=== PATIENT | female | born 1950 | race Caucasian/White ===

== ENCOUNTER 2020-10-23 20:16 | Inpatient (IN) | payer OTHER ==
[~2020-10-23] VITALS: Ht 167.6 cm; Wt 109.2 kg
[~2020-10-23 20:16] MED LIST: BUPR150ER PO; CALCAVITD PO; CANCER MED; CYAN100 PO; DULO30 PO; DULO60 PO; HYDACE5 PO; IBUHYD PO; MULVITMINF PO; OMEP20ER PO; OXYACE5T PO; PHENTERMINE PO; ROSU10TA PO; ROSU5 PO; RXOXYACE PO; THYROID; WELLBUTRIN
[2020-10-23 20:40] LABS: BASOPHILS ABSOLUTE AUTO 0.05 K/mm3 (0.00-0.23); BASOPHILS PERCENT AUTO 0 % (0-2); EOSINOPHILS ABSOLUTE AUTO 0.03 K/mm3 (0.00-0.68); EOSINOPHILS PERCENT AUTO 0 % (0-6); Hematocrit 42.4 % (33.0-51.0); IMMATURE GRAN ABSOLUTE AUTO 0.12 K/mm3 (0.00-0.10); IMMATURE GRAN PERCENT AUTO 1 % (0-1); LYMPHOCYTES ABSOLUTE AUTO 1.09 K/mm3 (0.84-5.20); LYMPHOCYTES PERCENT AUTO 7 % (21-46); MONOCYTES ABSOLUTE AUTO 1.82 K/mm3 (0.16-1.47); MONOCYTES PERCENT AUTO 11 % (4-13); Mean Corpuscular HGB 30.8 pg (26.0-34.0); Mean Corpuscular Volume 93 fL (80-100); Mean Platelet Volume 9.7 fL (9.1-12.4); NEUTROPHILS ABSOLUTE AUTO 13.16 K/mm3 (1.96-9.15); NEUTROPHILS PERCENT AUTO 81 % (41-73); Platelet Count 270 K/mm3 (150-400); RDW Coefficient Variation 12.2 % (11.7-14.2); RDW Standard Deviation 42.6 fL (35.1-46.3); Red Blood Cell Count 4.54 M/mm3 (3.80-5.20); White Blood Cell Count 16.27 K/mm3 (4.00-11.30)
[2020-10-23 20:58] LABS: Source, Urine Catheter
[2020-10-23 20:58] LABS: Alanine Aminotransfer (ALT/SGP 14 U/L (12-78); Albumin, Blood 2.9 g/dL (3.4-5.0); Albumin/Globulin Ratio 0.7 (0.8-1.8); Alk Phos 175 U/L (50-136); Anion Gap 13 mmol/L (6-16); Aspartate Aminotrans (AST/SGOT 17 U/L (12-37); Blood Urea Nitrogen 10 mg/dL (8-24); Bun/Creatinine Ratio 10.5 (12.0-20.0); CO2, Blood 22 mmol/L (21-32); Calcium, Blood 8.9 mg/dL (8.5-10.1); Chloride, Blood 101 mmol/L (98-108); Creatinine, Blood 0.95 mg/dL (0.40-1.00); Glomerular Filtration Rate >60 (60-); Glucose, Blood 104 mg/dL (70-99); Sodium, Blood 136 mmol/L (136-145); Total Protein, Blood 6.9 g/dL (6.4-8.2)
[2020-10-23 21:07] LABS: Appearance, Urine Hazy (Clear); Blood, Urine 4+ (Neg); Color, Urine Yellow (P-Yellow); Glucose Qualitative, Urine Neg (Neg); Ketones, Urine 4+ (Neg); Leukocyte Esterase, Urine 1+ (Neg); Nitrite, Urine Neg (Neg); Protein, Urine 3+ (Neg); Specific Gravity, Urine 1.015 (1.003-1.022); Urobilinogen, Urine 3+ (Normal)
[2020-10-23 21:13] LABS: Bilirubin, Urine 1+ (Neg)
[2020-10-23 21:14] LABS: Bacteria Mod /hpf; Squamous Epithelial Cells Not Seen /hpf (Few)
[2020-10-23 21:15] LABS: WBC Cast 0-2 /lpf (0)
[2020-10-23 22:18] LABS: Influenza A, PCR Negative (NEGATIVE); Influenza B, PCR Negative (NEGATIVE); Resp Syncytial Virus, PCR Negative (NEGATIVE); SARS-Cov-2 (COVID-19) PCR, MMC Negative (NEGATIVE)
[2020-10-23 22:39] LABS: Troponin I <0.015 ng/mL (0.000-0.040)
[2020-10-24] MEDS ORDERED: FLUO10 PO (05:39)
[2020-10-24] MEDS ORDERED: RABE20 PO (05:39)
[2020-10-24] MEDS ORDERED: MELATONIN5 M1 PO (05:40)
[2020-10-24] MEDS ORDERED: ALPR.25 PO (05:40)
[2020-10-24] MEDS ORDERED: DOC250 PO (05:41)
[2020-10-24 05:55] LABS: BASOPHILS ABSOLUTE AUTO 0.03 K/mm3 (0.00-0.23); BASOPHILS PERCENT AUTO 0 % (0-2); EOSINOPHILS ABSOLUTE AUTO 0.07 K/mm3 (0.00-0.68); EOSINOPHILS PERCENT AUTO 1 % (0-6); Hematocrit 38.9 % (33.0-51.0); Hemoglobin 12.4 g/dL (11.5-16.0); IMMATURE GRAN ABSOLUTE AUTO 0.09 K/mm3 (0.00-0.10); IMMATURE GRAN PERCENT AUTO 1 % (0-1); LYMPHOCYTES ABSOLUTE AUTO 1.43 K/mm3 (0.84-5.20); LYMPHOCYTES PERCENT AUTO 10 % (21-46); MONOCYTES ABSOLUTE AUTO 1.37 K/mm3 (0.16-1.47); MONOCYTES PERCENT AUTO 10 % (4-13); Mean Corpuscular HGB 30.4 pg (26.0-34.0); Mean Corpuscular HGB Conc 31.9 g/dL (31.5-36.5); Mean Corpuscular Volume 95 fL (80-100); NEUTROPHILS ABSOLUTE AUTO 10.74 K/mm3 (1.96-9.15); NEUTROPHILS PERCENT AUTO 78 % (41-73); Platelet Count 268 K/mm3 (150-400); RDW Coefficient Variation 12.4 % (11.7-14.2); RDW Standard Deviation 43.7 fL (35.1-46.3); Red Blood Cell Count 4.08 M/mm3 (3.80-5.20); White Blood Cell Count 13.73 K/mm3 (4.00-11.30)
[2020-10-24 12:23] LABS: Anion Gap 8 mmol/L (6-16); Blood Urea Nitrogen 10 mg/dL (8-24); Bun/Creatinine Ratio 11.6 (12.0-20.0); CO2, Blood 27 mmol/L (21-32); Calcium, Blood 8.6 mg/dL (8.5-10.1); Chloride, Blood 107 mmol/L (98-108); Creatinine, Blood 0.86 mg/dL (0.40-1.00); Glomerular Filtration Rate >60 (60-); Glucose, Blood 88 mg/dL (70-99); Potassium, Blood 3.8 mmol/L (3.5-5.5); Sodium, Blood 142 mmol/L (136-145)
--- NOTE | 2020-10-24 14:29 | NUR ---
INTO SDS WITH RN, ADMISSION TO UNIT STARTED.
--- NOTE | 2020-10-24 15:24 | NUR ---
10/24/20 1524 Dwain Gardiner PT ON SCHEDULED UNASYN AND RECIEVED PRIOR TO OR ARRIVAL.
[2020-10-24] MEDS ORDERED: PARO20 PO (16:30)
[2020-10-24] MEDS ORDERED: GABA300 PO (16:30)
--- NOTE | 2020-10-24 17:41 | NUR ---
SHIFT SUMMARY PT CURRENTLY AT DAY SURGERY. A&Ox4; CALM AND COOPERAIVE WITH CARE. PT APPEARS TO BE SLEEPING FOR MAJOIRTY OF SHIFT. PT DENIES PAIN FOR MAJOIRTY OF SHIFT, REPORTS CHEST PAIN THAT IS WORSE WITH BREATHING AND EPIGASTRIC AND RIGHT SIDED RIB PAIN; NOTIFIED DR YI; NEW ORDERS ENTERED. PT REPORTS MILD NAUSEA, DENIES NEED FOR INTERVENTION. PT DENIES SOB AND DIZZINESS T/O SHIFT. PT RECEIVING IV POTASSIUM. VSS. NO OTHER ACUTE CHAGNES NOTED DURING SHIFT. WILL CONTINUE TO MONITOR UNTIL REPORT GIVEN TO ONCOMING RN.
--- NOTE | 2020-10-24 18:28 | NUR ---
POD 0 LAP/OPEN SILVANO PATIENT CAME BACK TO SURGICAL UNIT AT 1820 TODAY 10/24/2020. SHE IS SLEEPING BUT AROUSABLE. POST OP VSS AND IN PROGRESS. MEDICATING FOR PAIN PER ORDERS. NICKY AND JEFE DRAIN INTACT. IVF INFUSING PER ORDERS. FAMILY MEMBER AT BEDSIDE FOR SUPPORT. CALL LIGHT WITHIN REACH.
--- NOTE | 2020-10-24 18:37 | NUR ---
PT LEFT FOR SURGERY AT APPROX 1400; TRANSFERED TO ROOM 224 POST OP; VERBAL REPORT GIVEN TO BRETT XIONG ASSUMING CARE OF PT.
[2020-10-25 04:22] LABS: BASOPHILS ABSOLUTE AUTO 0.02 K/mm3 (0.00-0.23); BASOPHILS PERCENT AUTO 0 % (0-2); EOSINOPHILS PERCENT AUTO 0 % (0-6); Hematocrit 40.1 % (33.0-51.0); Hemoglobin 12.7 g/dL (11.5-16.0); IMMATURE GRAN PERCENT AUTO 1 % (0-1); LYMPHOCYTES ABSOLUTE AUTO 0.68 K/mm3 (0.84-5.20); LYMPHOCYTES PERCENT AUTO 5 % (21-46); MONOCYTES PERCENT AUTO 4 % (4-13); Mean Corpuscular HGB 30.4 pg (26.0-34.0); Mean Corpuscular HGB Conc 31.7 g/dL (31.5-36.5); Mean Corpuscular Volume 96 fL (80-100); Mean Platelet Volume 9.6 fL (9.1-12.4); NEUTROPHILS PERCENT AUTO 89 % (41-73); Platelet Count 293 K/mm3 (150-400); RDW Coefficient Variation 12.6 % (11.7-14.2); RDW Standard Deviation 45.3 fL (35.1-46.3); Red Blood Cell Count 4.18 M/mm3 (3.80-5.20)
[2020-10-25 04:42] LABS: Alanine Aminotransfer (ALT/SGP 43 U/L (12-78); Albumin, Blood 2.3 g/dL (3.4-5.0); Albumin/Globulin Ratio 0.5 (0.8-1.8); Alk Phos 178 U/L (50-136); Anion Gap 8 mmol/L (6-16); Aspartate Aminotrans (AST/SGOT 54 U/L (12-37); Bilirubin, Total 0.4 mg/dL (0.1-1.0); Blood Urea Nitrogen 15 mg/dL (8-24); CO2, Blood 25 mmol/L (21-32); Calcium, Blood 8.7 mg/dL (8.5-10.1); Chloride, Blood 107 mmol/L (98-108); Creatinine, Blood 0.75 mg/dL (0.40-1.00); Globulin, Blood 4.4 g/dL (2.2-4.0); Glomerular Filtration Rate >60 (60-); Glucose, Blood 132 mg/dL (70-99); Sodium, Blood 140 mmol/L (136-145); Total Protein, Blood 6.7 g/dL (6.4-8.2)
--- NOTE | 2020-10-25 05:56 | NUR ---
SHIFT SUMMARY: EVARISTO IS A&OX4. VSS, NO ACUTE EVENTS OVERNIGHT, ORA. SHE REPORTS TOLERABLE PAIN CONTROL WITH THE FENTANYL WAGE HAND. SHE IS TOLERATING PO INTAKE, BUT DID COMPLAIN OF SOME NAUSEA THIS AM. SHE IS A ONE PERSON ASSIST TO THE BATHROOM. SHE DENIES ANY DIFFICULTY URINATING. ATTENDS IN PLACE FOR EPISODES OF INCONTINENCE. IV TO R AC PATENT. SHE USES HER CALL LIGHT APPROPRIATELY. SHE HAS COMPLAINED OF SWEATING, BEDSIDE FAN PROVIDED. NICKY X 2 TO ABDOMEN AND JEFE DRAIN TO RUQ. SHE IS LYING IN BED WITH HER CALL LIGHT IN REACH. WILL REPORT TO DAY SHIFT RN.
--- NOTE | 2020-10-25 15:46 | NUR ---
SHIFT SUMMARY: POD 1 OPEN SILVANO PATIENT HAS BEEN ALERT AND ORIENTED X4. VITALS ARE WNL AND IS ON RA. HER PAIN IS CONTROLLED WITH 2 PERCOCET TABS PO AND FENTANYL IV FOR BREAK THROUGH. SHE HAS BEEN VOIDING IN THE BATHROOM. SHE AMBULATED WELL A SBA TO THE BATHROOM. SHE IS ELIECER PO INTAKE IN SMALL AMOUNTS AT A TIME. THE 2 PICOS ARE D/C/I. THE JEFE DRAIN IS C/D/I WITH BROWN OUTPUT. THE BULB IS COMPRESSED AT THIS TIME. SHE HAS BEEN SINUS RHYTHM THROUGHOUT SHIFT ON HER TELE. SISTER IS IN THE ROOM WITH HER AT THIS TIME. PATIENT CALLS APPROPRIATELY. CALL LIGHT IS WITHIN REACH. HE PLAN IS TO ENCOURAGE FLUIDS, PO INTAKE, AND KEEP RECIEVING ABX.
--- NOTE | 2020-10-26 00:34 | NUR ---
CALLED ELECTRICIAN CONTROL EQUIPMENT HOSPITALIST AND RELAYED MICROBIOLOGY RESULT FROM LAB, CURRENT ABX TO BE CONTINUED PER DR RIZO.
[2020-10-26 03:52] LABS: BASOPHILS ABSOLUTE AUTO 0.03 K/mm3 (0.00-0.23); BASOPHILS PERCENT AUTO 0 % (0-2); EOSINOPHILS PERCENT AUTO 0 % (0-6); Hematocrit 35.6 % (33.0-51.0); Hemoglobin 11.5 g/dL (11.5-16.0); IMMATURE GRAN ABSOLUTE AUTO 0.15 K/mm3 (0.00-0.10); IMMATURE GRAN PERCENT AUTO 1 % (0-1); LYMPHOCYTES ABSOLUTE AUTO 1.14 K/mm3 (0.84-5.20); LYMPHOCYTES PERCENT AUTO 9 % (21-46); MONOCYTES ABSOLUTE AUTO 0.86 K/mm3 (0.16-1.47); MONOCYTES PERCENT AUTO 7 % (4-13); Mean Corpuscular HGB 30.9 pg (26.0-34.0); Mean Corpuscular HGB Conc 32.3 g/dL (31.5-36.5); Mean Corpuscular Volume 96 fL (80-100); Mean Platelet Volume 9.5 fL (9.1-12.4); NEUTROPHILS ABSOLUTE AUTO 10.63 K/mm3 (1.96-9.15); NEUTROPHILS PERCENT AUTO 83 % (41-73); Platelet Count 327 K/mm3 (150-400); RDW Coefficient Variation 12.9 % (11.7-14.2); RDW Standard Deviation 45.5 fL (35.1-46.3); Red Blood Cell Count 3.72 M/mm3 (3.80-5.20); White Blood Cell Count 12.81 K/mm3 (4.00-11.30)
--- NOTE | 2020-10-26 04:12 | NUR ---
SHIFT SUMMARY POD2 LAP TO OPEN CHOLECYSTECTOMY, A/O X4, VSS, TOLERATING PO, VOIDING WELL, AMBULATING WELL, PAIN WELL CONTROLLED, ADDITION OF FLEXERIL SEEMS TO BE HELPING W/ PT REPORTS OF MUSCLE SPASMS AND PAIN MANAGEMENT. CALL LIGHT IN REACH, WILL CONTINUE TO MONITOR AND REPORT TO ONCOMING DAY RN.
[2020-10-26 04:14] LABS: Alanine Aminotransfer (ALT/SGP 29 U/L (12-78); Albumin, Blood 2.2 g/dL (3.4-5.0); Albumin/Globulin Ratio 0.6 (0.8-1.8); Alk Phos 138 U/L (50-136); Anion Gap 5 mmol/L (6-16); Aspartate Aminotrans (AST/SGOT 23 U/L (12-37); Bilirubin, Total 0.4 mg/dL (0.1-1.0); Blood Urea Nitrogen 15 mg/dL (8-24); Bun/Creatinine Ratio 19.9 (12.0-20.0); CO2, Blood 29 mmol/L (21-32); Calcium, Blood 8.7 mg/dL (8.5-10.1); Chloride, Blood 107 mmol/L (98-108); Creatinine, Blood 0.75 mg/dL (0.40-1.00); Globulin, Blood 3.7 g/dL (2.2-4.0); Glomerular Filtration Rate >60 (60-); Glucose, Blood 115 mg/dL (70-99); Potassium, Blood 3.8 mmol/L (3.5-5.5); Sodium, Blood 141 mmol/L (136-145); Total Protein, Blood 5.9 g/dL (6.4-8.2)
--- NOTE | 2020-10-26 17:59 | NUR ---
SHIFT SUMMARY POD2 LAP CONVERTED OPEN SILVANO. PT REPORTS MINIMAL INCISIONAL PAIN. PAIN MANAGED W/ 2 PERCOCET. 2 ABD NICKY REMAIN INTACT, COMPRESSED AND CDI. JEFE DRAINING 90ML DURING MY SHIFT. ABX INFUSING. FLEXERIL ALSO HELPED A LOT W/ MUSCLE SPASM. PT HAD COUPLE EPISODE OF BEING TACHY AT 160-200 PER JUSTINE TAIL PULLER. PT WAS ASYMPTOMATIC. A0X4, DENIES CP/PRESSURE, SOB AND N/T. PT WAS ANXIOUS ABOUT PLACING A NEW IV/POWERGLIDE (PREVIOUS IV STARTED LEAKING) AND WAS MOVING AROUND THE ROOM WHEN THIS EPISODE HAPPENED. PT ELIECER REG DIET DENIES N/V. AMBULATING W/ FWW AND GB W/ MIN ASSIST. URINE OUTPUT IS ADEQUATE. CALL LIGHT W/IN REACH. SISTER ON BEDSIDE.
--- NOTE | 2020-10-26 22:51 | NUR ---
TELEMETRY CALLED TO TELL ME PT HR WAS IN 170'S. PT HX OF AFIB. VITALS TAKEN SHOW HR BETWEEN 60'S AND 80'S. PT APPEARS STABLE AT THIS TIME, NO SIGNS OF DISTRESS, MILD ABD CRAMPING WHICH IS CONSISTENT WITH THIS HOSPITAL VISIT. WILL CONTINUE TO MONITOR, WILL CALL CORNER TRIMMER OPERATOR DOCTOR W/ ANY ACUTE CHANGES/CONCERNS.
--- NOTE | 2020-10-27 04:48 | NUR ---
SHIFT SUMMARY POD3 OPEN SILVANO, A/O X4, TOLERATING PO, AMBULATING W/ FWW TO BATHROOM W/ 1 PERSON SBA, VOIDING WELL. PAIN WELL CONTROLLED (SEE EMAR), JEFE DRAIN PATENT AND DRAINING BROWN FLUID. PT CONVERTED TO AFIB PER VEGETABLE FARMER REPORT W/ HR IN THE 170'S. PT APPEARED STABLE AT THE TIME OF REPORT, NO COMPLAINTS OTHER THAN SOME MINOR ABD CRAMPS, VS TAKEN AND FOUND TO BE NORMAL. CALL LIGHT IN REACH, WILL CONTINUE TO MONITOR AND REPORT TO ONCOMING DAY RN.
[2020-10-27] MEDS ORDERED: Percocet 5-3251 EACH PO (10:02)
[2020-10-27] MEDS ORDERED: CYCL10 PO (10:03)
--- NOTE | 2020-10-27 11:16 | NUR ---
AMBULATING TO THE BATHROOM, TOLERATING WELL, DENIES ANY NAUSEA, JEFE DRAIN INTACT W/ BILE DRAINAG, DC INSTRUCTIONS GIVEN, VERBALIZED UNDERSTANDING INCLUDING JEFE DRAIN CARE AND DRESSING.
--- NOTE | 2020-10-27 15:17 | NUR ---
PT DC'D HOME WITH SISTER.
== END 2020-10-27 15:18 | disposition home or self-care (01) | DRG 854 ==
LOC: ER 20:16 → PCU 23:55 → MEDS 23:55 → SURS 23:55 → PCU 10-24 01:05 → SURS 10-24 18:08
PROVIDERS: Internal Medicine; Physician Assistant; Surgery; ADMIT Internal Medicine
PROC: 0FT40ZZ Resection of Gallbladder, Open Approach (ICD-10-PCS; principal; 2020-10-24 14:00)
PROC: 0FJ44ZZ Inspection of Gallbladder, Percutaneous Endoscopic Approach (ICD-10-PCS; 2020-10-24 14:00)
DX: A41.9 Sepsis, unspecified organism (principal); K81.0 Acute cholecystitis; I48.91 Unspecified atrial fibrillation; Z87.891 Personal history of nicotine dependence; Z20.828 Contact with and (suspected) exposure to other viral communicable diseases; K44.9 Diaphragmatic hernia without obstruction or gangrene; Z90.12 Acquired absence of left breast and nipple; K82.A1 Gangrene of gallbladder in cholecystitis; E87.6 Hypokalemia
CPT/HCPCS: 0241U; 36415; 71045; 76705; 80048; 80053; 81001; 83605; 83690; 83880; 84484; 85025; 87040; 88304; 93005; 93010; 96361; 96365; 96375; 96376; 99285-25; A9270; A9270-GY; C1751; C9113; J0295; J0696; J1100; J1650; J1885; J2250; J2370; J2405; J2704; J3010; J3480; J7030; J7040; J7050; J7120; P9612

== ENCOUNTER 2020-11-04 08:24 | Inpatient (IN) | payer OTHER, SELFPAY ==
[~2020-11-04] VITALS: Ht 167.6 cm; Wt 109.0 kg
[~2020-11-04 08:24] MED LIST changes: +ALPR.5 PO; +CYCL10 PO; +DOC250 PO; +FLUO10 PO; +GABA300 PO; +MELATONIN5 M1 PO; +PARO20 PO; +Percocet 5-3251 EACH PO; +RABE20 PO
[2020-11-04 09:22] LABS: BASOPHILS ABSOLUTE AUTO 0.12 K/mm3 (0.00-0.23); BASOPHILS PERCENT AUTO 0 % (0-2); EOSINOPHILS ABSOLUTE AUTO 0.09 K/mm3 (0.00-0.68); EOSINOPHILS PERCENT AUTO 0 % (0-6); Hematocrit 43.8 % (33.0-51.0); Hemoglobin 14.2 g/dL (11.5-16.0); IMMATURE GRAN ABSOLUTE AUTO 0.33 K/mm3 (0.00-0.10); IMMATURE GRAN PERCENT AUTO 1 % (0-1); LYMPHOCYTES ABSOLUTE AUTO 1.17 K/mm3 (0.84-5.20); LYMPHOCYTES PERCENT AUTO 4 % (21-46); MONOCYTES ABSOLUTE AUTO 2.38 K/mm3 (0.16-1.47); MONOCYTES PERCENT AUTO 8 % (4-13); Mean Corpuscular HGB 30.7 pg (26.0-34.0); Mean Corpuscular HGB Conc 32.4 g/dL (31.5-36.5); Mean Corpuscular Volume 95 fL (80-100); Mean Platelet Volume 8.8 fL (9.1-12.4); NEUTROPHILS ABSOLUTE AUTO 25.62 K/mm3 (1.96-9.15); NEUTROPHILS PERCENT AUTO 86 % (41-73); Platelet Count 609 K/mm3 (150-400); RDW Coefficient Variation 13.5 % (11.7-14.2); RDW Standard Deviation 46.6 fL (35.1-46.3); Red Blood Cell Count 4.62 M/mm3 (3.80-5.20); White Blood Cell Count 29.71 K/mm3 (4.00-11.30)
[2020-11-04 09:34] LABS: Albumin, Blood 2.5 g/dL (3.4-5.0); Albumin/Globulin Ratio 0.6 (0.8-1.8); Bun/Creatinine Ratio 12.6 (12.0-20.0); Calcium, Blood 9.1 mg/dL (8.5-10.1); Creatinine, Blood 1.03 mg/dL (0.40-1.00); Globulin, Blood 4.3 g/dL (2.2-4.0); Potassium, Blood 3.7 mmol/L (3.5-5.5); Total Protein, Blood 6.8 g/dL (6.4-8.2)
[2020-11-04] MEDS ORDERED: NEURONTIN300 MG PO (14:39)
--- NOTE | 2020-11-04 16:56 | NUR ---
ARRIVAL PT ARRIVED TO UNIT ON GURNEY, PT DECLINED ABILITY TO STAND AND TRANSFER R/T PAIN. SLID USING SHEET PT REPORTED 10/10 PAIN AND NAUSEA ON TRANSFER. MEDICATED PER EMAR. PAIN DROPPED TO 9/10. PT BREATHING RAPIDLY RELATED TO PAIN 2L OXYGEN AND SATS 92% OR HIGHER. STATES NAUSEA RELIEVED. PT AA0X4 BUT IS SLOW TO RESPOND AT TIMES. OFTEN ASKS HER SISTER TO ANSWER QUESTIONS FOR HER. JEFE DRAIN SITE IS SLIGHTLY RED AND GREEN LIQUID IN BULB. SURGICAL STAPLE SITES ARE CDI AND TELESCOPE OPERATOR. PAIN LOCATED IN UPPER ABD BELOW DIAPHRAGM TO BACK AND UP L SHOULDER. TELE PLACED ON PT. 2L OXYGEN. PT AWARE OF NPO ORDERS.
--- NOTE | 2020-11-04 16:59 | NUR ---
DR COOPER INTO SEE PT, AWARE OF INCREASED BREATHING DIFFICULTY AND PAIN MANAGEMENT ISSUES.
--- NOTE | 2020-11-04 17:35 | NUR ---
PAIN PT CONTINUES TO HAVE INCREASED PAIN, HAVING SOME SLIGHT CONFUSION ATTEMPTING TO GET OUT OF BED AND LEAVE, PULLING OXYGEN OFF, PULLING AT TELE AND IV CORDS. STILL ABLE TO ANSWER ALL QUESTIONS APPROPRIATLY. PAIN REMAINS 10/10, PT INCREASINGLY RESTLESS, RESPIRATIONS REMAIN ABOVE 30, SPOKE TO DR COOPER WHO ASKED ME TO CONTACT DR MENDOZA. SPOKE TO DR MENDOZA AT 1731. HE IS GOING TO CALL BACK AFTER HE MAKES SOME CALLS. UPON ASSESSMENT WAS UNABLE TO HEAR SOUNDS IN LLL. OTHER LUNG SOUNDS PRESENT AND CLEAR. PT WITH DIFFICULTY TAKING DEEP BREATHS AT THIS TIME BUT WAS SITTING UP WHEN ATTEMPTING TO LISTEN.
[2020-11-04 19:14] LABS: Influenza A, PCR Negative (NEGATIVE); Influenza B, PCR Negative (NEGATIVE); Resp Syncytial Virus, PCR Negative (NEGATIVE); SARS-Cov-2 (COVID-19) PCR, MMC Negative (NEGATIVE)
--- NOTE | 2020-11-04 19:56 | NUR ---
DR MENDOZA IN ROOM AT 1850 CONCENTING FOR SURGERY WITH PATIENT AND HER TWIN SISTER WHO HAS BEEN HER COACH CLEANER OVER THE PAST MONTH. PATIENT IS MOANING IN PAIN AND PULLING LEGS UP TOWARDS CHEST. HER PAIN IS A 10/10. ATTEMPTED TO START A SECOND IV, U/S USED TO LOOK FOR A VEIN, UNABLE TO START A SECOND IV. PATIENT TO OR @1940.
--- NOTE | 2020-11-04 20:14 | NUR ---
11/04/202013 Aracely Schuster PT ON SCHEDULED ANTIBIOTICS
--- NOTE | 2020-11-04 21:18 | NUR ---
SUPPLEMENTAL O2 CHANGED FROM NON-REBREATHER @ 10L/min TO NC @ 2L/min. PT TOLERATING WELL, O2 SATS >90%. PT ABLE TO FOLLOW COMMANDS TO DEEP BREATHE.
--- NOTE | 2020-11-04 22:32 | NUR ---
POST OP- PATIENT RETURNED FROM THE ICU (PACU) @2215. PATIENT IS RESTING CALMLY IN BED WITH EYES CLOSED, STATED THAT SHE WAS PAIN FREE, DENIES NAUSEA. RR 22, TELE IS SINUS AT 93BPM. PRIOR TRANSVERSE ABD INCISION WAS USED FOR THIS SURGERY, NICKY DRESSING IS CLEAN AND DRY WITH COMPRESSION. NEW JEFE DRAIN TO HER LT ABD. RT JEFE DRAIN REMAINS IN RT ABD, BOTH ARE NOW EMPTIED AND COMPRESSED. ABD APPEARS TO BE SMALLER AND LESS FIRM. SCD'S ARE ON. DURHAM CATH IS DRAINING CLEAR YELLOW URINE. CALL LIGHT ON CHEST AND TWIN SISTER IS IN THE ROOM WITH PATIENT.
--- NOTE | 2020-11-05 04:31 | NUR ---
PATIENT IS RESTING BETWEEN CARE AND TREATMENT. SHE IS CURRENTLY SLEEPING, WAKES WITH VERBAL STIMULI. NAUSEA RESOLVED WITH ZOFRAN, PAIN CONTROLLED WITH IV NARCOTICS. JEFE DRAINS ARE EMPTIED EVERY 2-3 HOURS, WITH 20-40CC OF CLEAR DARK BILE TINGED FLUID. NICKY REMAINS COMPRESSED, C/D/I. DURHAM CATH IS DRAINING CLEAR YELLOW URINE. CALL LIGHT IN REACH.
[2020-11-05 05:29] LABS: BASOPHILS ABSOLUTE AUTO 0.08 K/mm3 (0.00-0.23); BASOPHILS PERCENT AUTO 0 % (0-2); EOSINOPHILS PERCENT AUTO 0 % (0-6); Hematocrit 39.8 % (33.0-51.0); Hemoglobin 12.6 g/dL (11.5-16.0); IMMATURE GRAN PERCENT AUTO 3 % (0-1); LYMPHOCYTES ABSOLUTE AUTO 0.71 K/mm3 (0.84-5.20); LYMPHOCYTES PERCENT AUTO 2 % (21-46); MONOCYTES PERCENT AUTO 4 % (4-13); Mean Corpuscular HGB 30.8 pg (26.0-34.0); Mean Corpuscular HGB Conc 31.7 g/dL (31.5-36.5); Mean Corpuscular Volume 97 fL (80-100); Mean Platelet Volume 9.4 fL (9.1-12.4); NEUTROPHILS ABSOLUTE AUTO 28.38 K/mm3 (1.96-9.15); NEUTROPHILS PERCENT AUTO 90 % (41-73); Platelet Count 510 K/mm3 (150-400); RDW Coefficient Variation 13.8 % (11.7-14.2); RDW Standard Deviation 49.4 fL (35.1-46.3); Red Blood Cell Count 4.09 M/mm3 (3.80-5.20); White Blood Cell Count 31.47 K/mm3 (4.00-11.30)
[2020-11-05 05:47] LABS: Alanine Aminotransfer (ALT/SGP 201 U/L (12-78); Albumin/Globulin Ratio 0.5 (0.8-1.8); Alk Phos 308 U/L (50-136); Anion Gap 7 mmol/L (6-16); Aspartate Aminotrans (AST/SGOT 356 U/L (12-37); Blood Urea Nitrogen 12 mg/dL (8-24); CO2, Blood 27 mmol/L (21-32); Calcium, Blood 8.3 mg/dL (8.5-10.1); Chloride, Blood 105 mmol/L (98-108); Creatinine, Blood 0.93 mg/dL (0.40-1.00); Glomerular Filtration Rate >60 (60-); Glucose, Blood 122 mg/dL (70-99); Sodium, Blood 139 mmol/L (136-145)
--- NOTE | 2020-11-05 09:19 | NUR ---
PT GAVE PERMISSION FOR CARE ON 11/05/20.
--- NOTE | 2020-11-05 14:48 | NUR ---
PT COULD NOT TOLERATE BEING POSITIONED TO R SIDE W/PILLOW. REPOSITIONED IN SEMI FOWLERS. SISTER AT BEDSIDE. CALL LIGHT IN REACH. MEDICATED PER ORDERS FOR 7/10 ABD PAIN.
--- NOTE | 2020-11-05 17:06 | NUR ---
SUMMARY NO ACUTE CHANGES T/O SHIFT. PT SLEPT UNTIL APPROXIMATELY MIDDAY. IV BEGAN LEAKING/DC'D WNL. UNABLE TO ESTABLISH NEW IV SITE/POWERGLIDE. DISCUSSED PICC LINE PLACEMENT BUT DR AKBAR DIRECTED TO NOT PLACE AT THIS TIME. CHANGED MEDS TO PO. MEDICATED ONCE DURING SHIFT FOR 7/10 ABDOMINAL PAIN; PT REPORTED PAIN IMPROVED. TAKING SIPS OF CLEAR LIQUIDS. JEFE DRAINS X2 PRODUCING BROWN LIQUID. DURHAM CATH DRAINING DARK YELLOW URINE. SISTER AT BEDSIDE. CALL LIGHT IN REACH.
--- NOTE | 2020-11-06 04:16 | NUR ---
SHIFT SUMMARY POD2 EXLAP, A/O X4, VSS. REPORTED MILD NAUSEA AT BEGINNING OF SHIFT AFTER EATING JELLO, ZOFRAN GIVEN, PT DENIES HAVING ANYMORE NAUSEA AND TOLERATING PO INTAKE. VOIDING VIA DURHAM, BOTH JEFE DRAINS INTACT/COMPRESSED AND DRAINING WNL. PAIN WELL CONTROLLED W/ ORAL PAIN MEDICATIONS. CALL LIGHT IN REACH, WILL CONTINUE TO MONITOR AND REPORT TO ONCOMING DAY RN.
[2020-11-06 05:32] LABS: BASOPHILS ABSOLUTE AUTO 0.05 K/mm3 (0.00-0.23); BASOPHILS PERCENT AUTO 0 % (0-2); EOSINOPHILS ABSOLUTE AUTO 0.37 K/mm3 (0.00-0.68); EOSINOPHILS PERCENT AUTO 2 % (0-6); Hematocrit 33.9 % (33.0-51.0); Hemoglobin 10.8 g/dL (11.5-16.0); IMMATURE GRAN ABSOLUTE AUTO 0.17 K/mm3 (0.00-0.10); IMMATURE GRAN PERCENT AUTO 1 % (0-1); LYMPHOCYTES ABSOLUTE AUTO 1.48 K/mm3 (0.84-5.20); LYMPHOCYTES PERCENT AUTO 8 % (21-46); MONOCYTES PERCENT AUTO 7 % (4-13); Mean Corpuscular HGB 30.5 pg (26.0-34.0); Mean Corpuscular HGB Conc 31.9 g/dL (31.5-36.5); Mean Corpuscular Volume 96 fL (80-100); NEUTROPHILS ABSOLUTE AUTO 15.86 K/mm3 (1.96-9.15); NEUTROPHILS PERCENT AUTO 82 % (41-73); Platelet Count 507 K/mm3 (150-400); RDW Standard Deviation 49.4 fL (35.1-46.3); Red Blood Cell Count 3.54 M/mm3 (3.80-5.20); White Blood Cell Count 19.23 K/mm3 (4.00-11.30)
[2020-11-06 05:52] LABS: Alanine Aminotransfer (ALT/SGP 120 U/L (12-78); Albumin, Blood 1.8 g/dL (3.4-5.0); Albumin/Globulin Ratio 0.5 (0.8-1.8); Alk Phos 253 U/L (50-136); Anion Gap 7 mmol/L (6-16); Aspartate Aminotrans (AST/SGOT 66 U/L (12-37); Bilirubin, Total 0.7 mg/dL (0.1-1.0); Blood Urea Nitrogen 15 mg/dL (8-24); Bun/Creatinine Ratio 20.7 (12.0-20.0); CO2, Blood 27 mmol/L (21-32); Calcium, Blood 8.4 mg/dL (8.5-10.1); Chloride, Blood 107 mmol/L (98-108); Creatinine, Blood 0.72 mg/dL (0.40-1.00); Globulin, Blood 3.9 g/dL (2.2-4.0); Glomerular Filtration Rate >60 (60-); Glucose, Blood 89 mg/dL (70-99); Potassium, Blood 3.7 mmol/L (3.5-5.5); Sodium, Blood 141 mmol/L (136-145); Total Protein, Blood 5.7 g/dL (6.4-8.2)
--- NOTE | 2020-11-06 06:30 | NUR ---
VEWS PT MORNING VITALS PRODUCED VEWS SCORE OF 3. CHECKED ON PT WHO DID NOT APPEAR TO BE IN ANY ACUTE DISTRESS. DISCUSSED VITALS W/ PT AND THEIR IMPORTANCE. PT REPORTED TAKING DEEP BREATHS CAUSED INCREASED PAIN, O2 SAT > 90% AND SHE DENIED SOB/DIFFICULTY BREATHING OUTSIDE OF INCREASED PAIN WHEN TAKING DEEP BREATHS. NO ABNORMAL READINGS FROM TELEMETRY, PT DENIES LIGHTHEADEDNESS/DIZZYNESS. WILL CONTINUE TO MONITOR PT FOR CHANGES
--- NOTE | 2020-11-06 12:21 | NUR ---
AFIB: AT ABOUT 0730 DURING SHIFT CHANGE. BUNDLER CALLED REPORTING THAT PT IN AFIB WITH RVR, RATE AT 140. UPON ASSESSMENT ALL OTHER VSS. PT DENIED ANY CHEST PAIN/PRESSURE. DR. COOPER NOTIFIED AND IV LOPRESSER GIVEN WHEN IV ACCESS ESTABLISHED. AT ABOUT 0939 PT CONVERTED BACK TO NSR WITH HR OF 99, ALL OTHER VSS. DR. COOPER MADE AWARE. WILL CTM PT STATUS.
--- NOTE | 2020-11-06 14:03 | NUR ---
Pt. is lying in bed resting and is doing fine offered prayers
--- NOTE | 2020-11-06 18:00 | NUR ---
SUMMARY: NO ACUTE CHANGE SINCE THIS AM. TELE NSR, NO OTHER EVENTS. VSS AND PT A/O. PT WAS SLEEPY TODAY, STATING SHE DIDN'T GET ANY REST LAST NIGHT. DID GET UP TO THE CHAIR FOR PT/OT BUT SLEPT THE MAJORITY OF THE DAY IN BED. SURGICAL SITE AND JEFE DRAINS WNL. JEFE AT RLQ DRESSED WITH DRAIN SPONGE, NO LEAKING NOTED SINCE DRESSING CHANGED. PT TAKING IN SMALL AMT OF FULL LIQ. PAIN SEEMS TO BE CONTROLED WELL WITH NARCO. NO SAFETY CONCERNS.
[2020-11-07 04:16] LABS: BASOPHILS ABSOLUTE AUTO 0.07 K/mm3 (0.00-0.23); BASOPHILS PERCENT AUTO 1 % (0-2); EOSINOPHILS ABSOLUTE AUTO 0.43 K/mm3 (0.00-0.68); EOSINOPHILS PERCENT AUTO 3 % (0-6); Hemoglobin 10.8 g/dL (11.5-16.0); IMMATURE GRAN ABSOLUTE AUTO 0.13 K/mm3 (0.00-0.10); IMMATURE GRAN PERCENT AUTO 1 % (0-1); LYMPHOCYTES ABSOLUTE AUTO 1.35 K/mm3 (0.84-5.20); LYMPHOCYTES PERCENT AUTO 10 % (21-46); MONOCYTES ABSOLUTE AUTO 0.94 K/mm3 (0.16-1.47); MONOCYTES PERCENT AUTO 7 % (4-13); Mean Corpuscular HGB 30.4 pg (26.0-34.0); Mean Corpuscular HGB Conc 31.8 g/dL (31.5-36.5); Mean Corpuscular Volume 96 fL (80-100); Mean Platelet Volume 8.6 fL (9.1-12.4); NEUTROPHILS ABSOLUTE AUTO 10.02 K/mm3 (1.96-9.15); NEUTROPHILS PERCENT AUTO 78 % (41-73); Platelet Count 493 K/mm3 (150-400); RDW Standard Deviation 49.4 fL (35.1-46.3); Red Blood Cell Count 3.55 M/mm3 (3.80-5.20); White Blood Cell Count 12.94 K/mm3 (4.00-11.30)
[2020-11-07 04:36] LABS: Alanine Aminotransfer (ALT/SGP 86 U/L (12-78); Albumin, Blood 1.8 g/dL (3.4-5.0); Albumin/Globulin Ratio 0.4 (0.8-1.8); Alk Phos 254 U/L (50-136); Anion Gap 6 mmol/L (6-16); Aspartate Aminotrans (AST/SGOT 36 U/L (12-37); Bilirubin, Total 0.6 mg/dL (0.1-1.0); Blood Urea Nitrogen 13 mg/dL (8-24); Bun/Creatinine Ratio 18.2 (12.0-20.0); CO2, Blood 28 mmol/L (21-32); Calcium, Blood 8.3 mg/dL (8.5-10.1); Chloride, Blood 106 mmol/L (98-108); Creatinine, Blood 0.71 mg/dL (0.40-1.00); Glomerular Filtration Rate >60 (60-); Glucose, Blood 88 mg/dL (70-99); Potassium, Blood 3.9 mmol/L (3.5-5.5); Sodium, Blood 140 mmol/L (136-145); Total Protein, Blood 5.8 g/dL (6.4-8.2)
--- NOTE | 2020-11-07 06:32 | NUR ---
SHIFT SUMMARY POD3 EXLAP/SP WILLE, A/O X4, VSS, TOLERATING FULL LIQ DIET, VOIDING VIA DURHAM, DENIES FLATUS AND NO BM SINCE 11/01, DR NOTIFIED AND BOWEL CARE STARTED. PAIN WELL CONTROLLED, TELE ADVISED OF PT CONVERTING TO AFIB BRIEFLY BUT REPEATEDLY W/ HR BOUNCING BETWEEN 80'S TO 150'S, WILL NOTIFY . CALL LIGHT IN REACH, WILL CONTINUE TO MONITOR AND REPORT TO ONCOMING DAY RN.
--- NOTE | 2020-11-07 07:30 | NUR ---
pt sleeping wakes to verbal stimuli stated that she feels that good said that she get to eat now and worried about bm started on med last night
--- NOTE | 2020-11-07 08:44 | NUR ---
pt also given mom with her sched meds
--- NOTE | 2020-11-07 10:15 | NUR ---
de la vega cath removed ot by to see pt
--- NOTE | 2020-11-07 12:02 | NUR ---
dr mallory by to see pt oob in recliner earlier christine with physical therapy came to see pt
--- NOTE | 2020-11-07 13:34 | NUR ---
PT HAD MED LOOSE BM DURING HAD A EST 1.5 MIN EVENT AFIB WITH RVR
--- NOTE | 2020-11-07 15:15 | NUR ---
PT VISITING WITH HER FAMILY
--- NOTE | 2020-11-07 16:04 | NUR ---
dr dupree by to see pt
--- NOTE | 2020-11-07 17:05 | NUR ---
Spiritual care note: Mrs. Pickering tells me she is hopeful for full recovery. She says she is feeling better and expresses gratitude for excellent care. She is Anabaptist, therefore Father Felice will be following her throughout this hospitalization. She denied concerns and was pleasantly dismissive. I will remain available.
--- NOTE | 2020-11-07 18:14 | NUR ---
pt oob to bathroom had small run of svt and pac notified dr mallory pt had some cp during it back sr per tele ann-marie put strip on chart for
--- NOTE | 2020-11-08 00:57 | NUR ---
VTACH TELE CALLED STATED PT HAD 10 BEAT RUN VTACH. WENT TO CHECK ON PT, PT WAS WALKING BACK TO BED FROM BATHROOM. PT STATED HAVING SOME FLUTTERING AND MILD GENERALIZED DULL CHEST PAIN. VS DONE, PT HR ALL OVER THE PLACE, FROM 98-170'S. PLACED CALLED OUT TO DR. RIZO AND WENT TO GIVE IV LOPRESSOR BUT NOW HR IS NSR 80'S. WILL WAIT FOR CALL BACK FOR ANY ORDERS.
--- NOTE | 2020-11-08 01:13 | NUR ---
DR. RIZO CALLED BACK, SEE NEW ORDERS.
[2020-11-08 01:25] LABS: BASOPHILS ABSOLUTE AUTO 0.06 K/mm3 (0.00-0.23); BASOPHILS PERCENT AUTO 1 % (0-2); EOSINOPHILS ABSOLUTE AUTO 0.24 K/mm3 (0.00-0.68); EOSINOPHILS PERCENT AUTO 2 % (0-6); IMMATURE GRAN ABSOLUTE AUTO 0.17 K/mm3 (0.00-0.10); IMMATURE GRAN PERCENT AUTO 2 % (0-1); LYMPHOCYTES ABSOLUTE AUTO 1.52 K/mm3 (0.84-5.20); LYMPHOCYTES PERCENT AUTO 15 % (21-46); MONOCYTES ABSOLUTE AUTO 0.93 K/mm3 (0.16-1.47); MONOCYTES PERCENT AUTO 9 % (4-13); Mean Corpuscular HGB 29.9 pg (26.0-34.0); Mean Corpuscular HGB Conc 31.4 g/dL (31.5-36.5); Mean Corpuscular Volume 95 fL (80-100); Mean Platelet Volume 8.6 fL (9.1-12.4); NEUTROPHILS ABSOLUTE AUTO 7.21 K/mm3 (1.96-9.15); NEUTROPHILS PERCENT AUTO 71 % (41-73); Platelet Count 495 K/mm3 (150-400); RDW Coefficient Variation 13.9 % (11.7-14.2); RDW Standard Deviation 48.8 fL (35.1-46.3); Red Blood Cell Count 3.68 M/mm3 (3.80-5.20); White Blood Cell Count 10.13 K/mm3 (4.00-11.30)
--- NOTE | 2020-11-08 01:25 | NUR ---
LABS DRAWN, PO KCL AND METOPROLOL GIVEN. HR SINUS TACH W/PAC'S 101. PT STATES FEELING BETTER, NO FLUTTER, NO CHEST PAIN. INSTRUCTED TO CALL IF CHEST PAIN OR FLUTTERING RETURNS. CALL LIGHT AT SIDE.
[2020-11-08 01:40] LABS: Albumin, Blood 1.9 g/dL (3.4-5.0); Anion Gap 7 mmol/L (6-16); Blood Urea Nitrogen 11 mg/dL (8-24); CO2, Blood 28 mmol/L (21-32); Calcium, Blood 8.5 mg/dL (8.5-10.1); Chloride, Blood 106 mmol/L (98-108); Creatinine, Blood 0.78 mg/dL (0.40-1.00); Glomerular Filtration Rate >60 (60-); Glucose, Blood 114 mg/dL (70-99); Magnesium, Blood 2.4 mg/dL (1.6-2.4); Phosphorus, Blood 2.2 mg/dL (2.5-4.9); Sodium, Blood 141 mmol/L (136-145)
--- NOTE | 2020-11-08 04:40 | NUR ---
TELE MONITOR CALLED, PT HR HIGH 210 IN AFIB RVR FOR OVER 30 SECONDS, THEN CHANGED TO A BIGEMINY RHYTHM. CALLED DR. RIZO, NEW ORDER FOR ECHO FOR TODAY. MD STATES LONG NOT SUSTAINING AND ASYMPTOMATIC JUST CONT TO MONITOR. BP STABLE, CURRENT RHYTHM IS NS WITH PAC'S 85. PT JUST HAS PALPATATIONS/FLUTTERING NO CHEST PAIN. RN TO MONITOR CLOSELY FOR CHANGES. CALL LIGHT IN REACH.
--- NOTE | 2020-11-08 07:30 | NUR ---
PT GAVE STUDENT BOB HENRIQUEZ NURSE PERMISSION TO PARTICIPATE IN CARE
--- NOTE | 2020-11-08 12:04 | NUR ---
Echocardiogram performed.
--- NOTE | 2020-11-08 17:35 | NUR ---
SHIFT SUMMARY PT A&OX4, VSS, TELE NSR @ 90 BPM AND PER TELE PT HAS BEEN IN NSR ALL DAY; POD4, JEFE DRAINS X2 WITH MINIMAL OUT. PT WORKED WITH PT/OT TODAY, IS INDEPENDENT IN THE ROOM/TO BRP/IN HALLWAY, VOIDING WELL, SHOWERED TODAY, BM TODAY, ORAL ABX PER EMAR; REPORTS ABD PAIN TOLERABLE, DENIES OFFER OF PAIN MED; DENIES CP/PRESSURE/SOB. WILL REPORT TO ONCOMING NOC RN.
--- NOTE | 2020-11-08 23:10 | NUR ---
PT REPORTS THAT SHE TAKES XANAX AT HOME FOR ANXIETY. MEDICATION IS LISTED ON HER MED REC. PT IS REQUESTING MEDICATION D/T FEELINGS OF ANXIETY. ON-CALL PRACTITIONER CONTACTED AND ONE TIME ORDER OBTAINED.
--- NOTE | 2020-11-09 06:51 | NUR ---
SHIFT SUMMARY: IRENE IS A&OX4. VSS, NO ACUTE EVENTS OVERNIGHT. SHE DID REPORT FEELING HER HEART "FLUTTER" WHICH COINCIDED WITH PACs PER THE VETERINARY VIROLOGIST. SHE DID RELATE THAT SHE TAKES XANAX 0.5 MG AT HOME. ONE TIME DOSE GIVEN, AFTER WHICH THE PT RESTED COMFORTABLY. SHE IS INDEPENDENT IN THE HALLWAY AND BATHROOM. SHE STATES THAT HER SISTER IS PLANNING ON PICKING HER UP TODAY. JEFE DRAINS WITH SMALL AMT OF OUTPUT WHICH IS GREEN/YELLOW BILE COLORED. SHE IS TOLERATING PO INTAKE WELL. SHE USES HER CALL LIGHT APPROPRIATELY. SHE IS LYING IN BED WITH HER CALL LIGHT IN REACH. WILL REPORT TO DAY SHIFT RN.
[2020-11-09] MEDS ORDERED: LEVFLO500 PO (17:27)
[2020-11-09] MEDS ORDERED: METO25ER PO (17:28)
[2020-11-09] MEDS ORDERED: MIRALAX17 G5 PO (17:29)
[2020-11-09] MEDS ORDERED: PROBIOTIC1 EA13 PO (17:30)
[2020-11-09] MEDS ORDERED: ASPI81CH PO (17:51)
--- NOTE | 2020-11-09 19:21 | NUR ---
DISCHARGE SUMMARY PT A&OX4, VSS, TELE NSR 70S BPM, LEFT FLOOR VIA WC WITH RN TO GO HOME WITH SISTER, WITH ALL PERSONAL POSSESSIONS INCLUDING DC PACKET AND 1 NARC SCRIPT. [facility]. PT AND SISTER REP UNDERSTANDING THOSE INSTRUCTIONS INCLUDING FU SURGEON ON THURSDAY, FU WITH PCP RE AFIB, NEW MEDS AFIB TOPROL/ASA 81, PREVENT CONSTIPATION/MIRALAX, ABX 6 DAYS. IV DC'D
== END 2020-11-09 18:52 | disposition home or self-care (01) | DRG 357 ==
LOC: ER 08:24 → SURS 15:04
PROVIDERS: Emergency Medicine; Surgery; ADMIT Internal Medicine
PROC: 0W9J00Z Drainage of Pelvic Cavity with Drainage Device, Open Approach (ICD-10-PCS; principal; 2020-11-04 19:00)
DX: K91.81 Other intraoperative complications of digestive system (principal); N17.9 Acute kidney failure, unspecified; T81.40XA Infection following a procedure, unspecified, initial encounter; T81.44XA Sepsis following a procedure, initial encounter; Z90.12 Acquired absence of left breast and nipple; K91.89 Other postprocedural complications and disorders of digestive system; Z20.822 Contact with and (suspected) exposure to COVID-19; Z87.891 Personal history of nicotine dependence; G89.18 Other acute postprocedural pain; F41.8 Other specified anxiety disorders; K44.9 Diaphragmatic hernia without obstruction or gangrene; I48.0 Paroxysmal atrial fibrillation; D64.9 Anemia, unspecified; Y83.9 Surgical procedure, unspecified as the cause of abnormal reaction of the patient, or of later complication, without mention of misadventure at the time of the procedure; Y92.9 Unspecified place or not applicable; K66.8 Other specified disorders of peritoneum
CPT/HCPCS: 0241U; 36415; 71045; 74177; 80053; 80069; 83605; 83690; 83735; 85025; 87040; 87070; 87075; 87205; 93005; 93010; 93306; 94762; 96361; 96365-59; 96366; 96375; 97110; 97116; 97162; 97166; 97530; 97535; 99285-25; A9270; J0330; J1100; J1170; J1650; J1885; J2405; J2543; J2704; J2710; J2765; J3010; J7030; J7120; Q9967

== ENCOUNTER 2022-09-04 12:11 | Day surgery (SDC) | payer OTHER ==
[~2022-09-04] VITALS: Ht 167.6 cm; Wt 103.1 kg
[~2022-09-04 12:11] MED LIST changes: +ASPI81CH PO; +LEVFLO500 PO; +METO25ER PO; +MIRALAX17 G5 PO; +NEURONTIN300 MG PO; +PROBIOTIC1 EA13 PO
[2022-09-04] MEDS ORDERED: ELIQUIS2.5 MG (12:50)
[2022-09-04] MEDS ORDERED: GABA100 (12:50)
[2022-09-04] MEDS ORDERED: MELA3 (12:50)
[2022-09-04] MEDS ORDERED: NEBI5 (12:50)
[2022-09-04] MEDS ORDERED: DOCU100 (12:50)
== END 2022-09-04 14:24 | disposition home or self-care (01) ==
LOC: ORSCSDS 12:11
PROVIDERS: Student in an Organized Health Care Education/Training Program
PROC: 0DBL8ZX Excision of Transverse Colon, Via Natural or Artificial Opening Endoscopic, Diagnostic (ICD-10-PCS; principal; 2022-09-04 13:15)
PROC: 0DBN8ZX Excision of Sigmoid Colon, Via Natural or Artificial Opening Endoscopic, Diagnostic (ICD-10-PCS; principal; 2022-09-04 13:15)
PROC: 0DBK8ZX Excision of Ascending Colon, Via Natural or Artificial Opening Endoscopic, Diagnostic (ICD-10-PCS; principal; 2022-09-04 13:15)
PROC: 0DBH8ZX Excision of Cecum, Via Natural or Artificial Opening Endoscopic, Diagnostic (ICD-10-PCS; principal; 2022-09-04 13:15)
PROC: 0DBM8ZX Excision of Descending Colon, Via Natural or Artificial Opening Endoscopic, Diagnostic (ICD-10-PCS; principal; 2022-09-04 13:15)
DX: R19.5 Other fecal abnormalities (principal); D12.4 Benign neoplasm of descending colon; D12.3 Benign neoplasm of transverse colon; D12.0 Benign neoplasm of cecum; D12.2 Benign neoplasm of ascending colon; K63.5 Polyp of colon; K57.30 Diverticulosis of large intestine without perforation or abscess without bleeding; I48.0 Paroxysmal atrial fibrillation; F32.A Depression, unspecified; I10 Essential (primary) hypertension; Z79.01 Long term (current) use of anticoagulants; Z79.899 Other long term (current) drug therapy
CPT/HCPCS: 88305; J2704; J7120